=== PATIENT | female | born 1995 | race Caucasian/White ===

== ENCOUNTER 2017-07-26 09:40 | Emergency (ER) | payer BC ==
[2017-07-26 10:27] VITALS: BP 105/76
--- NOTE | 2017-07-29 13:03 | UC ---
Throat Pain/Nasal Alexander HPI - HPI Summary HPI Summary: 21 YEAR OLD FEMALE PRESENTS WITH COMPLAINS OF SINUS CONGESTION, ITCHY EYES AND COUGH. - History of Current Complaint Chief Complaint: UCRespiratory Stated Complaint: EYE COMPLAINT/CONGESTION COUGH Time Seen by Provider: 07/26/17 10:19 Hx Obtained From: Patient Hx Last Menstrual Period: 06/30/17 Onset/Duration: Sudden Onset Severity: Moderate Pain Intensity: 0 Pain Scale Used: 0-10 Numeric - 1 - Allergies/Home Medications Allergies/Adverse Reactions: Allergies Allergy/AdvReac Type Severity Reaction Status Date / Time No Known Allergies Allergy Verified 07/26/17 10:23 Home Medications: Home Medications Phenylephrine-Dm [Daytime Cold & Cough Chil 2.5-5 mg/5Ml] 1 gopal PO ONCE PRN 12/11 [History Confirmed 07/26/17] PMH/Surg Hx/FS Hx/Imm Hx - Surgical History Surgical History: None - Social History Alcohol Use: None Substance Use Type: None Smoking Status (MU): Never Smoked Tobacco Review of Systems Constitutional: Negative Skin: Negative Eyes: Drainage, Eye Redness ENT: Sore Throat, Nasal Discharge, Sinus Congestion, Sinus Pain/Tenderness Respiratory: Negative Cardiovascular: Negative Gastrointestinal: Negative Genitourinary: Negative Motor: Negative Neurovascular: Negative Musculoskeletal: Negative Neurological: Negative Psychological: Negative All Other Systems Reviewed And Are Negative: Yes Physical Exam Triage Information Reviewed: Yes Vital Signs: Initial Vital Signs Temp 37.0 C 07/26/17 10:23 Pulse 82 07/26/17 10:23 Resp 14 07/26/17 10:23 BP 105/76 07/26/17 10:23 Pulse Ox 100 07/26/17 10:23 Eyes: Positive: Conjunctiva Inflamed ENT: Positive: Pharyngeal erythema, Nasal congestion, Nasal drainage Dental Exam: Normal Neck exam: Normal Neck: Positive: 1 Respiratory Exam: Normal Cardiovascular Exam: Normal Abdominal Exam: Normal Musculoskeletal Exam: Normal Neurological Exam: Normal Psychological Exam: Normal Skin Exam: Normal Throat Pain/Nasal Course/Dx - Differential Dx/Diagnosis Provider Diagnoses: ALLERGIC RHINITIS. SINUSITIS Discharge - Discharge Plan Condition: Stable Disposition: HOME Prescriptions: Amoxicillin/Clavulanate 600 [Augmentin Es-600 (NF)] 600 mg PO BID #100 btl Loratadine [Claritin 5 MG/5 ML SYRUP] 10 mg PO QAM PRN #120 ml PRN Reason: Allergy Symptoms guaiFENesin/CODIEN 100MG-10MG* [Robitussin AC 100Mg-10Mg*] 5 ml PO Q8H PRN #120 udc MDD 15 ml PRN Reason: Cough Patient Education Materials: Sinusitis (ED), Cold Symptoms (ED) Referrals: No Primary Care Phys,NOPCP [Primary Care Provider] -
== END 2017-07-26 10:41 | disposition home or self-care (01) ==
LOC: UCCORT 09:40
DX: J30.9 Allergic rhinitis, unspecified (principal); J32.9 Chronic sinusitis, unspecified
CPT/HCPCS: 99212; G0463